=== PATIENT | male | born 1945 | race Caucasian/White ===

== ENCOUNTER 2019-11-09 06:30 | Inpatient (IN) ==
[2019-11-09] MEDS ORDERED: Clindamycin 900 MG/50 ML 900 MG/50 ML IV.SOLN IVPB ONE (07:04)
[2019-11-09] MEDS ORDERED: *HR* Propofol 200 MG/20 ML VIAL IVP ONE (07:15)
[2019-11-09] MEDS ORDERED: *HR* FentaNYL (PF) 100 MCG/2 ML VIAL ONE (07:15)
[2019-11-09] MEDS ORDERED: *HR* Midazolam HCl 2 MG/2 ML VIAL ONE (07:15)
[2019-11-09] MEDS ORDERED: Lidocaine -MPF 2% 2 ML VIAL ONE (07:16)
[2019-11-09] MEDS: Ringers Solution, Lactated 1,000 ML IVC SCH ×2 (07:20→09:57)
[2019-11-09] MEDS ORDERED: Ethanol\\Acetic Acid\\Na Ace\\Ben 1,000 ML IRRIG.SOLN IR ONE (07:33)
[2019-11-09] MEDS ORDERED: Acetaminophen IV 1,000 MG/100 ML INFUS..BTL IVPB ONE (07:47)
[2019-11-09] MEDS ORDERED: Famotidine 20 MG/2 ML VIAL IVP ONE (07:47)
[2019-11-09] MEDS ORDERED: Pregabalin 75 MG CAPSULE PO ONE (07:47)
[2019-11-09] MEDS ORDERED: ROPIVACAINE/PF/NS 0.25% 1 EACH SYRINGE INTRAART ONE (08:06)
[2019-11-09] MEDS ORDERED: Tranexamic Acid 1,000 MG/10 ML VIAL ONE (08:09)
[2019-11-09] MEDS ORDERED: Propofol 500 MG/50 ML INFUS..BTL ONE (08:10)
[2019-11-09] MEDS ORDERED: *HR* HYDROmorphone (PF) 1 MG/ML SYRINGE IVP PRN (08:35)
[2019-11-09] MEDS ORDERED: *HR* Labetalol 20 MG/4 ML SYRINGE IVP PRN (08:35)
[2019-11-09] MEDS ORDERED: *HR* HYDROmorphone 2 MG TABLET PO PRN (08:35)
[2019-11-09] MEDS ORDERED: *HR* Promethazine 25 MG/ML VIAL IVP PRN ×2 (08:35→12:25)
[2019-11-09] MEDS ORDERED: *HR* OxyCODONE Immed Rel 5 MG TABLET PO PRN (08:35)
[2019-11-09] MEDS ORDERED: Total Joint Mixture (50 ml) IR ONE (08:55)
[2019-11-09] MEDS ORDERED: Ondansetron 4 MG/2 ML VIAL ONE (09:02)
[2019-11-09] MEDS ORDERED: Dexamethasone 4 MG/ML VIAL ONE (09:02)
[2019-11-09] MEDS ORDERED: *HR* PHENYLEPHRINE 1,000 MCG/10 ML SYRINGE IVP ONE ×3 (09:14→12:25)
[2019-11-09 11:50] LABS: Hematocrit 41.4 % (37.5-50.1); Hemoglobin 13.6 g/dL (12.9-16.9)
[2019-11-09] MEDS ORDERED: MOM Conc 10 ML UD.LIQ PO PRN (12:25)
[2019-11-09] MEDS ORDERED: Naloxone 0.4 MG/ML INJ IVP PRN (12:25)
[2019-11-09] MEDS ORDERED: Ringers Solution, Lactated 1,000 ML IVC SCH (12:25)
[2019-11-09] MEDS ORDERED: *HR* OxyCODONE/APAP 10/325 TABLET PO PRN (12:25)
[2019-11-09] MEDS ORDERED: Morphine Sulfate Immed Rel 15 MG TABLET PO PRN (12:25)
[2019-11-09] MEDS ORDERED: Ondansetron 4 MG/2 ML VIAL IVP PRN (12:25)
[2019-11-09] MEDS ORDERED: Temazepam 15 MG CAPSULE PO PRN (12:25)
[2019-11-09] MEDS ORDERED: NON-FORMULARY MEDICATION 1 EACH EACH (Sildenafil Citrate [Viagra] 100 MG) PO PRN (12:25)
[2019-11-09] MEDS ORDERED: Sennosides 8.6 MG TABLET PO PRN ×2 (12:25)
[2019-11-09] MEDS: Cholecalciferol (D-3) 1,000 UNIT (25MCG) TABLET PO SCH (12:42)
[2019-11-09] MEDS: Multivit/Ca/Min/Fe/FA 1 TAB TABLET PO SCH (12:42)
[2019-11-09] MEDS ORDERED: HYDROcodone BIT/Homatropine 5 MG TABLET PO PRN (14:40)
[2019-11-09] MEDS: Morphine Sulfate Immed Rel 15 MG TABLET PO SCH ×2 (15:21→20:15)
[2019-11-09] MEDS: *HR* OxyCODONE/APAP 10/325 TABLET PO SCH ×2 (15:22→21:44)
[2019-11-09] MEDS: Ascorbic Acid 500 MG TABLET PO SCH (15:25)
[2019-11-09] MEDS: *HR* OxyCODONE Immed Rel 5 MG TABLET PO PRN (15:25)
[2019-11-09] MEDS: Clindamycin 900 MG/50 ML 900 MG/50 ML IV.SOLN IVPB SCH (15:26)
[2019-11-09] MEDS: Gabapentin 100 MG CAPSULE PO SCH ×2 (15:29→20:17)
[2019-11-09] MEDS ORDERED: *HR* Enoxaparin 30 MG/0.3 ML SYRINGE SQ SCH (18:00)
[2019-11-09] MEDS: *HR* Enoxaparin 30 MG/0.3 ML SYRINGE SQ SCH (18:23)
[2019-11-10] MEDS: *HR* OxyCODONE Immed Rel 5 MG TABLET PO PRN (00:03)
[2019-11-10] MEDS: Clindamycin 900 MG/50 ML 900 MG/50 ML IV.SOLN IVPB SCH (00:03)
[2019-11-10 02:13] LABS: Basophils % 0.1 %; Immature Granulocytes % 0.3 % (0-4); Lymphocytes # 0.9 K/mcL (0.6-4.6); Mean Corpuscular HGB Conc 33.3 g/dL (31.6-35.5); Mean Corpuscular Hemoglobin 28.8 pg (28.0-33.3); Mean Corpuscular Volume 86.5 fL (83.0-100.0); Mean Platelet Volume 10.5 fL (9.4-12.4); Monocytes # 0.6 K/mcL (0.0-1.3); Neutrophils # 5.5 K/mcL (1.6-8.9); Platelet Count 156 K/mcL (140-400); Red Blood Count 4.16 M/mcL (4.19-5.50); Red Cell Distribution Width 13.1 % (11.5-14.5); Segmented Neutrophils % 77.6 %; White Blood Count 7.1 K/mcL (4.3-11.1)
[2019-11-10 02:33] LABS: BUN/Creatinine Ratio 15 (6-26); Blood Urea Nitrogen 17 mg/dL (8-23); Calcium 10.5 mg/dL (8.6-10.3); Carbon Dioxide 24 mEq/L (23-29); Chloride 103 mEq/L (98-107); Glucose 146 mg/dL (70-105); Osmolality,Calculated 280 (280-300); Potassium 4.4 mEq/L (3.5-5.1); Sodium 133 mEq/L (136-145); eGFR For African Americans > 60 (> 60); eGFR For Non-African Americans > 60 (> 60)
[2019-11-10] MEDS: *HR* Enoxaparin 30 MG/0.3 ML SYRINGE SQ SCH ×2 (05:56→16:49)
[2019-11-10] MEDS: Cholecalciferol (D-3) 1,000 UNIT (25MCG) TABLET PO SCH (08:51)
[2019-11-10] MEDS: Gabapentin 100 MG CAPSULE PO SCH ×3 (08:51→20:41)
[2019-11-10] MEDS: Multivit/Ca/Min/Fe/FA 1 TAB TABLET PO SCH (08:51)
[2019-11-10] MEDS: Morphine Sulfate Immed Rel 15 MG TABLET PO SCH ×3 (08:52→20:40)
[2019-11-10] MEDS: Ascorbic Acid 500 MG TABLET PO SCH ×2 (08:52→16:49)
[2019-11-10] MEDS: *HR* OxyCODONE/APAP 10/325 TABLET PO SCH ×3 (10:06→20:40)
[2019-11-11] MEDS: *HR* Enoxaparin 30 MG/0.3 ML SYRINGE SQ SCH ×2 (05:53→16:33)
[2019-11-11 06:58] LABS: Basophils % 0.6 %; Eosinophils # 0.1 K/mcL (0.0-0.6); Eosinophils % 1.6 %; Hematocrit 36.2 % (37.5-50.1); Immature Granulocytes % 0.2 % (0-4); Lymphocytes # 1.5 K/mcL (0.6-4.6); Lymphocytes % 31.3 %; Mean Corpuscular HGB Conc 33.1 g/dL (31.6-35.5); Mean Corpuscular Hemoglobin 29.3 pg (28.0-33.3); Mean Corpuscular Volume 88.3 fL (83.0-100.0); Mean Platelet Volume 10.2 fL (9.4-12.4); Monocytes # 0.6 K/mcL (0.0-1.3); Monocytes % 11.8 %; Neutrophils # 2.6 K/mcL (1.6-8.9); Platelet Count 136 K/mcL (140-400); Red Cell Distribution Width 13.5 % (11.5-14.5); Segmented Neutrophils % 54.5 %; White Blood Count 4.9 K/mcL (4.3-11.1)
[2019-11-11 07:15] LABS: BUN/Creatinine Ratio 11 (6-26); Blood Urea Nitrogen 11 mg/dL (8-23); Calcium 10.9 mg/dL (8.6-10.3); Carbon Dioxide 28 mEq/L (23-29); Chloride 102 mEq/L (98-107); Glucose 101 mg/dL (70-105); Osmolality,Calculated 284 (280-300); Potassium 4.3 mEq/L (3.5-5.1); Sodium 137 mEq/L (136-145); eGFR For African Americans > 60 (> 60); eGFR For Non-African Americans > 60 (> 60)
[2019-11-11] MEDS: Cholecalciferol (D-3) 1,000 UNIT (25MCG) TABLET PO SCH (08:08)
[2019-11-11] MEDS: Multivit/Ca/Min/Fe/FA 1 TAB TABLET PO SCH (08:08)
[2019-11-11] MEDS: Morphine Sulfate Immed Rel 15 MG TABLET PO SCH ×3 (08:08→20:52)
[2019-11-11] MEDS: *HR* OxyCODONE/APAP 10/325 TABLET PO SCH ×3 (08:08→20:52)
[2019-11-11] MEDS: Gabapentin 100 MG CAPSULE PO SCH ×2 (08:09→20:53)
[2019-11-11] MEDS: Ascorbic Acid 500 MG TABLET PO SCH ×2 (08:09→16:33)
[2019-11-12] MEDS: *HR* OxyCODONE Immed Rel 5 MG TABLET PO PRN (04:26)
[2019-11-12] MEDS: *HR* Enoxaparin 30 MG/0.3 ML SYRINGE SQ SCH (05:08)
[2019-11-12] MEDS: Gabapentin 300 MG CAPSULE PO SCH ×3 (08:11→14:00)
[2019-11-12] MEDS: Cholecalciferol (D-3) 1,000 UNIT (25MCG) TABLET PO SCH (08:11)
[2019-11-12] MEDS: Morphine Sulfate Immed Rel 15 MG TABLET PO SCH ×2 (08:11→14:00)
[2019-11-12] MEDS: *HR* OxyCODONE/APAP 10/325 TABLET PO SCH ×2 (08:11→14:00)
[2019-11-12] MEDS: Ascorbic Acid 500 MG TABLET PO SCH (08:12)
[2019-11-12] MEDS: Gabapentin 100 MG CAPSULE PO SCH (08:12)
[2019-11-12] MEDS: Multivit/Ca/Min/Fe/FA 1 TAB TABLET PO SCH (08:12)
[2019-11-12 12:03] VITALS: BP 121/67
== END 2019-11-12 14:54 | DRG 468 ==
LOC: SAMDAY 06:30 → 3NENU 11:56
PROVIDERS: ADMIT Orthopaedic Surgery; ATTEND Orthopaedic Surgery